=== PATIENT | male | born 1970 | race Hispanic/Latino ===

== ENCOUNTER → 2019-06-10 11:01 | Outpatient (CLI) | payer OTHER, SELFPAY ==
--- NOTE | ~2019-06-10 | XR_ITS ---
EXAMINATION: XR lumbar spine 2-3V DATE: 06/10/2019 11:37 INDICATION: Annual pain and left anterior thigh numbness. TECHNIQUE: Anteroposterior and lateral views of the lumbar spine, and cone-down lateral view of the l umbosacral junction were obtained. COMPARISON: None. FINDINGS: Alignment is normal. Vertebral body heights are normal. Mild disc height loss with degenera tive endplate changes at T10-T11 through L1-L2. Mild degenerative endplate changes without significan t disc height loss at L3-L4. Said osteoarthritis, severe on the left and moderate on the right at L5- S1. Mild osteoarthritis and more cephalad lumbar facet joints. IMPRESSION: 1. Mild thoracolumbar spondylosis. Reviewed, dictated and finalized at location A. SERVER CONSULTANT
--- NOTE | ~2019-06-10 | XR_ITS ---
EXAMINATION: XR knee LT min 4V DATE: 06/10/2019 11:37 INDICATION: Left knee pain. TECHNIQUE: 4 views of left knee were obtained. COMPARISON: Left knee radiographs 12/12/2016 FINDINGS: Bone alignment is normal. No fracture. There is mild tricompartmental osteoarthritis. There is a moderate-sized knee joint effusion. IMPRESSION: 1. Mild left knee osteoarthritis. 2. Moderate-sized left knee joint effusion. Reviewed, dictated and finalized at location A. ROOM PRESS OPERATOR
== END ==
PROVIDERS: PCP Internal Medicine; Visit Provider Internal Medicine
DX: R20.0 Anesthesia of skin (principal); M25.562 Pain in left knee; M47.815 Spondylosis without myelopathy or radiculopathy, thoracolumbar region; M17.12 Unilateral primary osteoarthritis, left knee; M25.462 Effusion, left knee
CPT/HCPCS: 72100; 73564

== ENCOUNTER 2019-06-14 13:15 | Emergency (ER) | payer OTHER, SELFPAY ==
--- NOTE | ~2019-06-14 | CT_ITS ---
EXAMINATION: CTA brain carotid DATE: 06/14/2019 14:21 INDICATION: Left-sided headache. TECHNIQUE: Computed tomographic angiography (CTA) of the head was performed without and with 100 mL O mnipaque-350 intravenous contrast. CTA of the neck was performed with intravenous contrast. Automated exposure control and iterative reconstruction technique were employed. The dose-length product was 1 648.06 mGy-cm. Maximum intensity projection and volume rendered 3D-reconstructions were created by lorie rogers technologist on a separate workstation. COMPARISON: None. FINDINGS: HEAD CTA: There is no intracranial hemorrhage, acute infarction, or abnormal intracranial mass lesion . The ventricles are normal in size. There is mild mucosal thickening in the ethmoid sinuses. The orb its are normal. The mastoid air cells are normal. The vertebral arteries are codominant. There is no significant stenosis of basilar artery or the posterior cerebral arteries. There is no significant st enosis of the intracranial internal carotid arteries or anterior or middle cerebral arteries. Anterio r communicating artery is normal. Left posterior communicating artery is normal. A right posterior co mmunicating artery is not identified. NECK CTA: There are no pathologically enlarged lymph nodes. There is no significant stenosis of the v ertebral arteries. There is no visible plaque in the proximal internal carotid arteries. There is 0% stenosis of the proximal right internal carotid artery relative to normal distal artery lumen diamete r (NASCET criteria). There is 0% stenosis of the proximal left internal carotid artery relative to no rmal distal artery lumen diameter. There is mild cervical spondylosis. IMPRESSION: 1. Normal brain. No aneurysm or significant intracranial arterial stenosis. 2. Normal neck arteries. Reviewed, dictated and finalized at location A. [employer]
[2019-06-14 13:15] VITALS: BP 125/80; PULSE 74; RESP 18; TEMP 36.6; O2SAT 99
--- NOTE | 2019-06-14 13:49 | ED.NEUROSD ---
HPI - Neuro Symptoms/Deficit General Chief Complaint: Neuro Symptoms/Deficit Stated Complaint: neuro Time Seen by Provider: 06/14/19 13:47 Source: patient Mode of arrival: ambulatory Limitations: no limitations History of Present Illness HPI Narrative: Pt is a 48 y/o male who presents to the ED with c/o lt occipital pain and numbness that started about a month ago. Pt had a brain CT done but his pain today was more severe and he almost passed out at work. Pt notes that he gets lt arm and leg numbness when he drives. He states that he has been more clumsy. He notes that his numbness is better in the ED bed. Pt denies a H/o stroke or HTN. He denies CP or fever. Onset (ago): month(s) (1) Location: left face Quality: numb Associated symptoms: other (numbness to lt arm and leg) Related Data Home Medications Medication Instructions Recorded Confirmed tamsulosin mg PO 06/14/19 Allergies Allergy/AdvReac Type Severity Reaction Status Date / Time No Known Allergies Allergy Verified 06/14/19 13:17 Review of Systems Review of Systems: All systems reviewed & are unremarkable except as noted in HPI and below Constitutional: Constitutional: Denies fever(s) Cardiovascular: Cardiovascular: Denies chest pain Neurologic: Reports headache(s) (lt occipital) and Reports numbness (lt occipital region, lt cheek, lt arm, lt leg) PMFSH Past Medical History Medical History (Updated 06/14/19 @ 15:15 by Pierre French MD) BPH (benign prostatic hyperplasia) Surgical History Surgical History (Updated 06/14/19 @ 14:08 by Ramses Lal) No significant past surgical history Social History Social History (Updated 06/14/19 @ 14:08 by Ramses Lal) Smoking status: Never smoker Gender identity (if verbalized by the patient): Male Exam Narrative: Exam Narrative: GENERAL: Well-appearing, well-nourished, and in no acute distress. HEAD: Normocephalic, atraumatic. EYES: PERRLA and EOMI. ENT: Nares clear, . Mucous membranes moist. NECK: Supple. CHEST: Clear to auscultation. No respiratory distress. HEART: Regular rate and rhythm. No murmur heard. Normal peripheral pulses. ABDOMEN: Soft, nontender, nondistended, normal active bowel sounds. EXTREMITIES: Normal range of motion. No edema. SKIN: Warm, dry, no rash. NEURO: No focal deficits. Alert and oriented x3. PSYCH: Normal mood and affect. Course Course Emergency Course: Discussed the lab, CT findings with the patient. I also discussed with Dr. Acosta patient can be discharged home and followed up in his office. Consultations Consultation #1: Discussed case with Dr. Acosta, the neurologist. Pt can be discharged and follow up as outpatient. Date: 06/14/19 Time: 15:00 Vital Signs Vital signs: Vital Signs Temperature 36.6 C 06/14/19 13:15 Pulse Rate 74 06/14/19 13:15 Respiratory Rate 18 06/14/19 13:15 Blood Pressure 125/80 06/14/19 13:15 Pulse Oximetry 99 06/14/19 13:15 Temperature 36.6 C 06/14/19 13:15 Pulse Rate 86 06/14/19 14:57 Respiratory Rate 20 06/14/19 14:57 Blood Pressure 132/81 06/14/19 14:57 Pulse Oximetry 99 06/14/19 14:57 MDM - Neuro Symptoms/Deficit Lab Data Result diagrams: 06/14/19 13:44 06/14/19 13:44 Labs: Lab Results 06/14/19 06/14/19 Range/Units 13:44 13:44 WBC 5.3 (4.5-10.0) K/mm3 RBC 4.53 L (4.6-6.20) M/mm3 Hgb 14.1 (14.0-18.0) g/dL Hct 41.6 L (42.0-52.0) % MCV 91.8 (80-100) fl MCH 31.1 (26-34) pg MCHC 33.9 (32-36) g/dl RDW 12.8 (11.5-14.5) % Plt Count 174 (150-375) k/mm3 MPV 11.5 H (7.4-10.4) fl Immature Gran % (Auto) 0.2 (0-0.5) % Neut % (Auto) 51.5 (45.5-73.1) % Lymph % (Auto) 38.0 (18.3-44.2) % [place] % (Auto) 8.6 H (2.6-8.5) % Eos % (Auto) 1.1 (0-4.4) % Baso % (Auto) 0.6 (0.2-1.2) % Lymph # (Auto) 2.00 (0.9-3.2) K/mm3 [place] # (Auto) 0.5 (0.1-0.6) K/mm3 Eos # (Auto) 0.1 (0-0.3) K/mm
[2019-06-14 13:53] LABS: Basophils Percent Auto 0.6 % (0.2-1.2); Eosinophils Absolute Auto 0.1 K/mm3 (0-0.3); Eosinophils Percent Auto 1.1 % (0-4.4); Hematocrit 41.6 % (42.0-52.0); Hemoglobin 14.1 g/dL (14.0-18.0); Immature Granulocyte Absolute 0.01 K/mm3 (0.00-0.031); Immature Granulocyte Percent A 0.2 % (0-0.5); Mean Corpuscular HGB Conc 33.9 g/dl (32-36); Mean Corpuscular Hemoglobin 31.1 pg (26-34); Mean Corpuscular Volume 91.8 fl (80-100); Mean Platelet Volume 11.5 fl (7.4-10.4); Monocytes Absolute Auto 0.5 K/mm3 (0.1-0.6); Monocytes Percent Auto 8.6 % (2.6-8.5); Neutrophils Absolute Auto 2.7 K/mm3 (1.3-6.7); Neutrophils Percent Auto 51.5 % (45.5-73.1); Platelet Count Result 174 k/mm3 (150-375); Red Blood Count 4.53 M/mm3 (4.6-6.20); Red Cell Distribution Width 12.8 % (11.5-14.5); White Blood Count 5.3 K/mm3 (4.5-10.0)
[2019-06-14 14:05] LABS: Alanine Aminotransferase 49 U/L (4-50); Albumin Level 4.4 g/dL (3.5-5.1); Alkaline Phosphatase 120 U/L (38-126); Aspartate Amino Transferase 40 U/L (17-59); Bilirubin,Total 0.9 mg/dL (0.2-1.3); Blood Urea Nitrogen 11 mg/dL (9-20); Calcium 8.9 mg/dL (8.4-10.2); Carbon Dioxide 27 mmol/L (22-30); Chloride 98 mmol/L (98-107); Estimated Glomerular Filt Rate > 60; Glucose 107 mg/dL (75-110); Potassium 3.4 mmol/L (3.4-5.0); Sodium 137 mmol/L (137-145)
[2019-06-14 14:57] VITALS: BP 132/81; PULSE 86; RESP 20; O2SAT 99
--- NOTE | 2019-06-14 15:02 | PC.NURSE ---
pt ambulated in ED with steady gate w/o difficulty.
[2019-06-14 15:22] VITALS: BP 124/80; PULSE 80; RESP 20; O2SAT 99
== END 2019-06-14 15:23 | disposition home or self-care (01) ==
PROVIDERS: Emergency Medicine; Emergency Provider Family Medicine; PCP Internal Medicine
DX: R51 Headache (principal); N40.0 Benign prostatic hyperplasia without lower urinary tract symptoms
CPT/HCPCS: 36415; 70496; 70498; 80053; 85025; 99284; Q9967

== ENCOUNTER 2019-09-18 07:51 | Outpatient (CLI) | payer OTHER, SELFPAY ==
--- NOTE | 2019-09-20 12:22 | WPDHOLTEREM ---
Holter/Event Monitor Holter/Event Monitor Date of procedure: 09/18/19 Procedure Type: 48 hour holter monitor Indications: Palpitations Conclusion: 1. 48 hour holter monitor on 09/18/19. 2. Underlying rhythm is sinus rhythm. HR range 42-132 bpm; average HR 75 bpm. 3. There are 4 premature suprventricular complexes. No supraventricular tachycardia. 4. There are 3 premature ventricular complexes. No ventricular tachycardia. 5. No sinoatrial or atrioventricular blocks. No significant pauses greater than 2 seconds. 6. No symptoms available for correlation.
== END 2019-09-18 07:52 | disposition home or self-care (01) ==
LOC: ANHCARD 07:53
PROVIDERS: PCP Internal Medicine; Visit Provider Internal Medicine
DX: R00.2 Palpitations (principal)
CPT/HCPCS: 93225; 93226

== ENCOUNTER 2019-11-16 00:31 | Outpatient (CLI) | payer OTHER, SELFPAY ==
[2019-11-16 18:30] LABS: SARS-CoV-2 RNA PCR Negative
== END 2019-11-16 00:32 | disposition home or self-care (01) ==
LOC: ANHCOVIDDT 00:31
PROVIDERS: PCP Internal Medicine; Visit Provider Internal Medicine Gastroenterology
DX: Z01.818 Encounter for other preprocedural examination (principal); Z11.59 Encounter for screening for other viral diseases
CPT/HCPCS: 87635; C9803; U0003

== ENCOUNTER 2019-11-19 01:55 | Day surgery (SDC) | payer OTHER, SELFPAY ==
[2019-11-08 11:06] VITALS: BMI 30.9
--- NOTE | 2019-11-19 07:20 | WPDANESEPPF ---
Anes - Initial Pre Proc Eval Procedure: Operation Date: 11/19/19 10:00 Proposed Procedures p Screening Colonoscopy - Marcelo Stover MD Date/Time: 11/19/19 07:20 Surgeon: Marcelo Stover MD Pre Op Diagnosis: Neoplasm Screening Patient Data Age: 49 Gender: M Height: 1.75 m Weight: 95 kg Allergies Allergy/AdvReac Type Severity Reaction Status Date / Time No Known Allergies Allergy Verified 11/19/19 08:55 Home Medications Medication Instructions Recorded Confirmed Type No Home Medications 11/19/19 08 History Patient hx anesthesia problems: none Family hx anesthesia problems: none PMF Past Medical History Medical History (Updated 11/19/19 @ 07:20 by Jorge Sloan DO) Anxiety BPH (benign prostatic hyperplasia) Colon cancer screening Surgical History Surgical History (Updated 06/14/19 @ 14:08 by Ramses Lal) No significant past surgical history Social History Social History (Updated 06/14/19 @ 14:08 by Ramses Lal) Smoking status: Never smoker Gender identity (if verbalized by the patient): Male Anes - Eval Final PreProcedure Day of Procedure 11/19/19 07:20 Patient weight: obese Heart: regular rate and rhythm Lungs: clear to auscultation and normal air movement Airway: Mallampati scale class II Neurological: alert and oriented Last oral intake: >/= 8 hours ASA classification: II Emergent: no Anesthetic plan: proceed Anesthesia type and monitoring: general GIVS and standard monitoring Informed Consent: The patient's anesthetic plan and its attendant risks and benefits were discussed with the patient/family/POA. Questions were solicited and answers provided to the satisfaction of the patient/family/POA.
[2019-11-19 09:01] VITALS: BP 105/72; PULSE 86; RESP 16; TEMP 36.1; O2SAT 100
[2019-11-19] MEDS: LACTATED RINGERS 1,000 ML 150 ML IV CONT (09:09)
--- NOTE | 2019-11-19 10:05 | WPDHPUPDATE1 ---
History and Physical Update Update Date/Time: 11/19/19 10:05 History and Physical has been reviewed, including an updated exam of the patient. There are NO changes in the patient's condition. Risks, benefits, and alternatives have been discussed and questions answered. Patient agrees to proceed with procedure.
[2019-11-19 10:32] VITALS: BP 99/64; PULSE 68; RESP 23; O2SAT 99
[2019-11-19 10:42] VITALS: BP 100/66; PULSE 59; RESP 15; O2SAT 98
[2019-11-19 10:52] VITALS: BP 106/72; PULSE 50; RESP 14; O2SAT 99
[2019-11-19 11:02] VITALS: BP 111/78; PULSE 57; RESP 18; O2SAT 98
== END 2019-11-19 11:10 | disposition home or self-care (01) ==
PROVIDERS: PCP Internal Medicine; Visit Provider Internal Medicine Gastroenterology
PROC: 0DJD8ZZ Inspection of Lower Intestinal Tract, Via Natural or Artificial Opening Endoscopic (ICD-10-PCS; CPT 45378; principal; 2019-11-19 10:00)
DX: Z12.11 Encounter for screening for malignant neoplasm of colon (principal); K64.8 Other hemorrhoids
CPT/HCPCS: 45378; J2001; J2704; J7120

== ENCOUNTER 2020-11-13 09:40 | Emergency (ER) | payer OTHER, SELFPAY ==
[2020-11-13 09:46] VITALS: BP 115/83; PULSE 68; RESP 16; TEMP 36.9; O2SAT 97
[2020-11-13 09:50] LABS: Glucose Point of Care 285 mg/dl (65-105)
--- NOTE | 2020-11-13 10:24 | ECG_ITS ---
Measurements Intervals [place] Rate: 62 P: -4 OR: 153 QRS: 28 QRSD: 98 T: 45 QT: 408 QTc: 417 Interpretive Statements SINUS RHYTHM ST ELEVATION IN DIFFUSE LEADS- PROBABLY EARLY REPOLARIZATION ABNORMALITY BORDERLINE ECG Electronically Signed On 11-13-2020 15:31:53 CDT by Jovany Velazquez D.O.
[2020-11-13 10:45] LABS: Basophils Percent Auto 0.5 % (0.2-1.2); Eosinophils Absolute Auto 0.1 K/mm3 (0-0.3); Eosinophils Percent Auto 1.2 % (0-4.4); Hematocrit 40.4 % (42.0-52.0); Immature Granulocyte Absolute 0.02 K/mm3 (0.00-0.031); Immature Granulocyte Percent A 0.5 % (0-0.5); Immature Platelet Fraction Pct 13.8 % (0.9-11.2); Lymphocytes Absolute Auto 1.54 K/mm3 (0.9-3.2); Lymphocytes Percent Auto 36.7 % (18.3-44.2); Mean Corpuscular HGB Conc 34.7 g/dl (32-36); Mean Corpuscular Hemoglobin 31.6 pg (26-34); Mean Corpuscular Volume 91.2 fl (80-100); Monocytes Absolute Auto 0.4 K/mm3 (0.1-0.6); Monocytes Percent Auto 9.5 % (2.6-8.5); Neutrophils Absolute Auto 2.2 K/mm3 (1.3-6.7); Neutrophils Percent Auto 51.6 % (45.5-73.1); Platelet Count Result 153 k/mm3 (150-375); Red Blood Count 4.43 M/mm3 (4.6-6.20); Red Cell Distribution Width 12.1 % (11.5-14.5); White Blood Count 4.2 K/mm3 (4.5-10.0)
--- NOTE | 2020-11-13 10:53 | ED.RECABL ---
HPI - Recheck/Abnormal Lab/Rx General Chief Complaint: Recheck/Abnormal Lab/Rx Stated Complaint: recheck labs sent by PCP Time Seen by Provider: 11/13/20 09:44 Source: patient and RN notes reviewed Mode of arrival: ambulatory Limitations: no limitations History of Present Illness HPI narrative: This is a 50 year old male who presents from his PCP's office for evaluation for hyperglycemia with fatigue. Patient reports he has had increased thirst, increased urination and fatigue for 2-3 weeks. She also reports 18 pound weight loss even though he has been eating normally. He reports mild nausea but denies vomiting, chest pain , sob, or abdominal pain. He was evaluated by his PCP this morning. She found his blood sugar was 280 and he had ketones in his urine. Patient denies previous history of diabetes mellulits. Related Data Home Medications Medication Instructions Recorded Confirmed duloxetine mg PO 11/13/20 11/13/20 Allergies Allergy/AdvReac Type Severity Reaction Status Date / Time No Known Allergies Allergy Verified 11/13/20 09:50 Review of Systems Review of Systems: All systems reviewed & are unremarkable except as noted in HPI and below Constitutional: Constitutional: Denies chills and Denies fever(s) ENT: Denies sore throat Cardiovascular: Cardiovascular: Denies chest pain and Denies radiating jaw, neck or arm pain Respiratory: Respiratory: Denies cough and Denies dyspnea Gastrointestinal: Gastrointestinal: Denies abdominal pain, Reports nausea and Denies vomiting Genitourinary: Genitourinary: Denies dysuria and Reports urinary frequency Neurologic: Denies dizziness and Denies headache(s) Endocrine: Endocrine: Reports polydipsia and Reports polyuria [facility] Past Medical History Medical History (Updated 11/13/20 @ 13:40 by Lindsay Dunaway MD) Anxiety BPH (benign prostatic hyperplasia) Colon cancer screening Surgical History Surgical History (Updated 06/14/19 @ 14:08 by Ramses Lal) No significant past surgical history Social History Social History (Updated 06/14/19 @ 14:08 by Ramses Lal) Smoking status: Never smoker Gender identity (if verbalized by the patient): Male Exam Const: General: no acute distress and alert Orientation/consciousness: patient oriented x3 HENMT: Mouth: Yes dry mucous membranes Eyes: Pupils: Equal, round and reactive pupils present EOM: EOMs intact bilaterally Resp: Effort & Inspection: normal respiratory effort and no retractions Auscultation: clear to auscultation bilaterally Cardio: Rate: regular rate Rhythm: regular rhythm Heart sounds: no murmurs GI: GI Palp: Yes Soft to palpation, No Tenderness to palpation present (GI) and No Guarding due to palpation present (GI) Auscultation: normal bowel sounds Skin: General skin exam: normal color Rashes: no rashes Neuro: General: patient oriented x3, moves all extremities and CN's II-XI intact bilaterally Extrem: General: normal to inspection Psych: Mental Status: mental status grossly normal Affect: normal affect Course Reevaluation(s) Reevaluation #1: I Discussed with patient that he will be discharged home. He understands he will need to change diet and exercise. He will also be started on metformin as I discussed with his primary care physician Dr. Amanda Culp. He has no elevated AGAG , decreased bicarb to suggest DKA. He only has mild ketosis so not DKA. BS 218 Date: 11/13/20 Time: 13:37 Vital Signs Vital signs: Vital Signs Temperature 98.4 F 11/13/20 09:46 Pulse Rate 68 11/13/20 09:46 Respiratory Rate 16 11/13/20 09:46 Blood Pressure 115/83 11/13/20 09:46 Pulse Oximetry 97 11/13/20 09:46 Temperature 97.8 F 11/13/20 13:45 Pulse Rate 62 11/13/20 14:00 Respiratory Rate 12 11/13/20 14:00 Blood Pressure 105/77 11/13/20 14:00 Pulse Oximetry 98 11/13/20 14:00 MDM - Recheck/Abnormal Lab/Rx Lab Data Attestation: I revie
[2020-11-13 10:58] LABS: Alanine Aminotransferase 53 U/L (4-50); Albumin Level 3.9 g/dL (3.5-5.1); Alkaline Phosphatase 133 U/L (38-126); Anion Gap 9 mmol/L (8-16); Aspartate Amino Transferase 37 U/L (17-59); Bilirubin,Total 1.1 mg/dL (0.2-1.3); Blood Urea Nitrogen 14 mg/dL (9-20); Calcium 8.9 mg/dL (8.4-10.2); Carbon Dioxide 27 mmol/L (22-30); Chloride 98 mmol/L (98-107); Estimated CRCL calculation 111 ml/min; Estimated Glomerular Filt Rate > 60; Glucose 273 mg/dL (65-110); Magnesium 1.7 mg/dL (1.6-2.3); Potassium 4.1 mmol/L (3.4-5.0); Sodium 134 mmol/L (137-145)
[2020-11-13 11:04] LABS: Beta-Hydroxybutyrate/Acetoacetate 0.86 mmol/L (0.02-0.27)
[2020-11-13] MEDS: ONDANSETRON INJ 4 MG/2 ML VIAL IV PUSH (11:11)
[2020-11-13] MEDS: SODIUM CHLORIDE 0.9% IV 1,000 ML 999 ML IV CONT ×2 (11:11→12:02)
[2020-11-13 11:48] VITALS: BP 111/72; PULSE 64; RESP 16; TEMP 36.7; O2SAT 96
[2020-11-13 12:10] LABS: Add Urine Microscopic? YES; Appearance Urine Clear (Clear); Bilirubin Urine Negative (Negative); Blood Urine Negative (Negative); Color Urine Yellow (Yellow); Glucose Urine UA 3+ mg/dL (Negative); Ketones Urine 1+ mg/dL (Negative); Leukocyte Esterase Ur Negative LEU/UL (Negative); Mucus Urine Rare /lpf; Nitrate Urine Negative (Negative); Protein Urine Negative (Negative); RBC Urine 0-2 /hpf (0-2); Squamous Epithelial Cell Urine Rare /hpf (Few); Urobilinogen Urine Negative mg/dL (<2.0); WBC Urine 0-3 /hpf
[2020-11-13 12:17] LABS: Specific Grav Ur 1.041 (1.001-1.035)
[2020-11-13 12:31] VITALS: BP 112/80; PULSE 65; RESP 18; O2SAT 97
[2020-11-13 13:00] VITALS: BP 110/76; PULSE 68; RESP 16; TEMP 36.6; O2SAT 98
[2020-11-13 13:33] LABS: Glucose Point of Care 216 mg/dl (65-105)
[2020-11-13 13:45] VITALS: BP 125/68; PULSE 65; RESP 19; TEMP 36.6; O2SAT 96
[2020-11-13 14:00] VITALS: BP 105/77; PULSE 62; RESP 12; O2SAT 98
== END 2020-11-13 14:21 | disposition home or self-care (01) ==
PROVIDERS: Emergency Provider General Practice; PCP Internal Medicine
DX: E11.65 Type 2 diabetes mellitus with hyperglycemia (principal); N40.0 Benign prostatic hyperplasia without lower urinary tract symptoms; F41.9 Anxiety disorder, unspecified; R94.31 Abnormal electrocardiogram [ECG] [EKG]
CPT/HCPCS: 36415; 80053; 81001; 82010; 82948; 83735; 85025; 85055; 93005; 96361; 96374; 99284; J2405; J7030

== ENCOUNTER 2023-07-10 18:35 | Emergency (ER) | payer OTHER, SELFPAY ==
[2023-07-10 18:48] VITALS: BP 117/72; PULSE 69; RESP 18; TEMP 36.7; O2SAT 99
[2023-07-10] MEDS: LIDOCAINE HCL 1% LOCAL INJ 2 ML AMPUL 4 ML INFILTRATE (18:51)
--- NOTE | 2023-07-10 19:35 | ED.WOUNDLAC ---
HPI - Wound/Laceration General Chief Complaint: Wound/Laceration Stated Complaint: Cut Lt Hand Time Seen by Provider: 07/10/23 18:45 Source: patient Mode of arrival: ambulatory Limitations: no limitations History of Present Illness HPI narrative: 52 yo M presents with laceration to L index finger. Pt using knife at home while making dinner. Was in a hurry and cut himself. Apply bandaids at home and coud not get wound to stop bleeding. All systems reviewed and negative except as noted above. Related Data Home Medications Medication Instructions Recorded Confirmed sitagliptin phosphate 100 mg mg 07/10/23 tablet (Januvia) tadalafil 20 mg tablet mg 07/10/23 Allergies Allergy/AdvReac Type Severity Reaction Status Date / Time doxycycline AdvReac Mild Dizziness Verified 07/10/23 19:22 Review of Systems Review of Systems: CONSTITUTIONAL: Denies fever, chills, or sweats. EYES: Denies visual changes, redness, or discharge. ENT: Denies rhinorrhea, congestion, sore throat, or otalgia. CARDIOVASCULAR: Denies chest pain, palpitations, or edema. RESPIRATORY: Denies cough or dyspnea. GASTROINTESTINAL: Denies abdominal pain, nausea, vomiting, or diarrhea. GENITOURINARY: Denies dysuria or hematuria. SKIN: Denies rash or itching. Laceration to left index finger. MUSCULOSKELETAL: Denies back pain, joint pain, or myalgia. NEUROLOGIC: Denies headache, numbness, or weakness. PSYCHIATRIC: Denies anxiety or depression. All other systems reviewed are negative, except as documented in HPI. [facility] Past Medical History Medical History Anxiety BPH (benign prostatic hyperplasia) Colon cancer screening Diabetes Surgical History Surgical History No significant past surgical history Family History Family History Grandparent Stomach cancer Social History Social History Smoking status: Never smoker Alcohol intake: current Substance use type: does not use Living arrangements: with family Occupation/Education: occupation Additional occupation/education comments: [employer] Gender identity (if verbalized by the patient): Male Comments At time of signature, agree with nursing past medical, surgical, social and family history. There is no relevant family history pertinent to the presenting complaint. Exam Narrative: GENERAL: This is a well-nourished, well-developed patient, in no apparent distress. HEAD: normocephalic, atraumatic. EYES: PERRL. Sclera clear/white. Vision is grossly intact. EARS: External ears normal NOSE: External nose normal NECK: Neck supple, non-tender without lymphadenopathy, masses or thyromegaly. CARDIOVASCULAR: Regular rate and rhythm without murmurs, gallops, or rubs. RESPIRATORY: Clear to auscultation. Breath sounds equal bilaterally. No wheezes, rales, or rhonchi. SKIN: warm, Dry, intact with no suspicious lesions or rash, good texture and turgor. U shaped skin flap laceration to pad of distal aspect of L index finger. Small amount of active bleeding. skin flap approx. 4cm. there is approx. 1 cm where skin is intact. flap is normal color, not dusky. NEURO: awake, alert, and oriented to person, place and time. There were no obvious focal neurologic abnormalities. EXTREMITIES: No joint tenderness, effusion, or edema noted. Course Course Emergency Course: explained to pt that the flap of skin has reduced blood flow and he needs to monitor for change in color. this can hinder healing of wound. recommend he follow up with PCP to evaluate healing. if skin color dusky, pale, black/brown go to the ER. Patient is aware of diagnosis, understands and agrees to treatment plan. Anticipatory guidance given. Patient agrees to follow-up as directed and is aware of reasons
== END 2023-07-10 19:41 | disposition home or self-care (01) ==
PROVIDERS: Emergency Provider Nurse Practitioner Family; PCP Internal Medicine
DX: S61.211A Laceration without foreign body of left index finger without damage to nail, initial encounter (principal); W26.0XXA Contact with knife, initial encounter; Y93.G3 Activity, cooking and baking; N40.0 Benign prostatic hyperplasia without lower urinary tract symptoms; E11.9 Type 2 diabetes mellitus without complications
CPT/HCPCS: 12002; 99213; G0463

== ENCOUNTER 2024-07-22 13:12 | Emergency (ER) | payer OTHER, SELFPAY ==
[2024-07-22 13:18] VITALS: BP 128/83; PULSE 75; RESP 16; TEMP 36.7; O2SAT 99
[2024-07-22 13:25] LABS: Glucose Point of Care 233 mg/dl (65-105)
--- NOTE | 2024-07-22 14:53 | ED_ITS ---
HPI - Recheck/Abnormal Lab/Rx General Chief Complaint: Recheck/Abnormal Lab/Rx <Graciela Keenan PA-C - Last Filed: 07/22/24 19:02> Stated Complaint: Uncontrolled blood sugar <Graciela Keenan PA-C - Last Filed: 07/22/24 19:02> Time Seen by Provider: 07/22/24 14:53 <Graciela Keenan PA-C - Last Filed: 07/22/24 19:02> Focused HPI: This is a 53 year old male that presents to the ER for high blood sugar. Reports it has been in the 200s-300s. Reports he stopped taking his Januvia a couple of months ago due to his PCP's office closing. Reports increased thirst, urination. He does have an appointment with a new PCP on . GENERAL: Well-appearing, well-nourished, and in no acute distress. HEAD: Normocephalic, atraumatic. CHEST: Clear to auscultation. ?No respiratory distress. HEART: Regular rate and rhythm.? NEURO: ?Alert and oriented x3. Patient screened in triage and initial orders placed.? ?Additional care and disposition to be based upon?diagnostic testing and treatment. <Graciela Keenan PA-C - Last Filed: 07/22/24 19:02> History of Present Illness HPI narrative: agree with HPI <Carlos Ramirez MD - Last Filed: 07/22/24 16:04> Related Data Home Medications: Home Medications ?Medication ?Instructions ?Recorded ?Confirmed ?Last Taken ?Type sitagliptin phosphate 100 mg mg 07/10/23 Unknown History tablet (Januvia) tadalafil 20 mg tablet mg 07/10/23 Unknown History <Graciela Keenan PA-C - Last Filed: 07/22/24 19:02> Allergies/Adverse Reactions: Allergies Allergy/AdvReac Type Severity Reaction Status Date / Time doxycycline AdvReac Mild Dizziness Verified 07/22/24 13:13 <Graciela Keenan PA-C - Last Filed: 07/22/24 19:02> Review of Systems 2 Review of Systems: All systems reviewed & are unremarkable except as noted in HPI and below <Carlos Ramirez MD - Last Filed: 07/22/24 16:04> Constitutional: Constitutional: Reports no additional constitutional complaints <Carlos Ramirez MD - Last Filed: 07/22/24 16:04> Cardiovascular: Cardiovascular: Reports no additional cardiovascular complaints <Carlos Ramirez MD - Last Filed: 07/22/24 16:04> Respiratory: Respiratory: Reports no additional respiratory complaints < Carlos Ramirez MD - Last Filed: 07/22/24 16:04> Gastrointestinal: Gastrointestinal: Reports no additional gastrointestinal complaints <Carlos Ramirez MD - Last Filed: 07/22/24 16:04> Endocrine: Endocrine: Reports no additional endocrine complaints <Carlos Ramirez MD - Last Filed: 07/22/24 16:04> PMFSH Past Medical History Medical History: Medical History Anxiety BPH (benign prostatic hyperplasia) Colon cancer screening Diabetes <Graciela Keenan PA-C - Last Filed: 07/22/24 19:02> Surgical History Surgical History: Surgical History No significant past surgical history <Graciela Keenan PA-C - Last Filed: 07/22/24 19:02> Family History Family History: Family History Grandparent Stomach cancer <Graciela Keenan PA-C - Last Filed: 07/22/24 19:02> Social History Social History: Social History Smoking status: Never smoker Alcohol intake: current Substance use type: does not use Living arrangements: with family Occupation/Education: occupation Additional occupation/education comments: [employer] Gender identity (if verbalized by the patient): Male <Graciela Keenan PA-C - Last Filed: 07/22/24 19:02> Exam 2 Narrative: GENERAL: Well-appearing, well-nourished, and in no acute distress. HEAD: Normocephalic, atraumatic. ENT: Mucous membranes moist. CHEST: Clear to auscultation. No respiratory distress. HEART: Regular rate and rhythm. Normal peripheral pulses. EXTREMITIES: Normal range of motion. No edema. SKIN: Warm, dry, no rash. NEURO: Alert and oriented x3. PSYCH: Normal mood and affect. <Carlos Ramirez MD - Last Filed: 07/22/24 16:04> Course Course Emergency Course: Mild hyperglycemia. Will restart his Januvia and has follow-up with a PCP this week. <Carlos Ramirez MD - Last Filed: 07/22/24 16:04> Vital Signs Vital signs: Vital Signs Temperature 98.0 F 07/22/24 13:18 Pulse Rate 75 07/22/24 13:18 Respiratory Rate 16 07/22/24 13:18 Blood Pressure 128/83 07/22/24 13:18 Pulse Oximetry 99 07/22/24 13:18 Oxygen Delivery Room Air 07/22/24 13:18 Temperature 97.6 F 07/22/24 16:42 Pulse Rate 64 07/22/24 16:42 Respiratory Rate 20 07/22/24 16:42 Blood Pressure 119/81 07/22/24 16:42 Pulse Oximetry 100 07/22/24 16:42 Oxygen Delivery Room Air 07/22/24 15:42 <Graciela Keenan PA-C - Last Filed: 07/22/24 19:02> Vital Signs Temperature 98.0 F 07/22/24 13:18 Pulse Rate 75 07/22/24 13:18 Respiratory Rate 16 07/22/24 13:18 Blood Pressure 128/83 07/22/24 13:18 Pulse Oximetry 99 07/22/24 13:18 Oxygen Delivery Room Air 07/22/24 13:18 Temperature 97.6 F 07/22/24 16:42 Pulse Rate 64 07/22/24 16:42 Respiratory Rate 20 07/22/24 16:42 Blood Pressure 119/81 07/22/24 16:42 Pulse Oximetry 100 07/22/24 16:42 Oxygen Delivery Room Air 07/22/24 15:42 <Carlos Ramirez MD - Last Filed: 07/22/24 16:04> MDM - Recheck/Abnormal Lab/Rx Lab Data Result diagrams: 07/22/24 15:40 07/22/24 15:40 <Graciela Keenan PA-C - Last Filed: 07/22/24 19:02> Labs: Lab Results 07/22/24 07/22/24 Range/Units 13:21 15:40 WBC 6.0 (4.5-10.0) K/mm3 RBC 4.72 (4.6-6.20) M/mm3 Hgb 14.9 (14.0-18.0) g/dL Hct 44.0 (42.0-52.0) % MCV 93.2 (80-100) fl MCH 31.6 (26-34) pg MCHC 33.9 (32-36) g/dl RDW 12.1 (11.5-14.5) % Plt Count 172 (150-375) k/mm3 MPV 11.6 H (7.4-10.4) fl Immature Gran % (Auto) 0.3 (0-0.5) % Neut % (Auto) 50.3 (45.5-73.1) % Lymph % (Auto) 37.9 (18.3-44.2) % Starke % (Auto) 9.5 H (2.6-8.5) % Eos % (Auto) 1.5 (0-4.4) % Baso % (Auto) 0.5 (0.2-1.2) % Lymph # (Auto) 2.27 (0.9-3.2) K/mm3 Starke # (Auto) 0.6 (0.1-0.6) K/mm3 Eos # (Auto) 0.1 (0-0.3) K/mm3 Baso # (Auto) 0.0 (0.0-0.1) K/mm3 Abs Immat Gran (auto) 0.02 (0.00-0.031) K/mm3 Absolute Neuts (auto) 3.0 (1.3-6.7) K/mm3 Absolute Nucleated RBC 0.000 (0.0-0.012) K/mm3 Nucleated RBC % 0.0 (0.0-0.2) % Sodium 134 L (137-145) mmol/L Potassium 4.0 (3.4-5.0) mmol/L Chloride 99 (98-107) mmol/L Carbon Dioxide 28 (22-30) mmol/L Anion Gap 7 (4-12) mmol/L BUN 21 H (9-20) mg/dL Creatinine 0.73 (0.7-1.3) mg/dL Estim Creat Clear Calc 103 ml/min Estimated GFR > 60 (59 - ) Glucose 215 H (65-110) mg/dL POC Capillary Glucose 233 H (65-105) mg/dl Calcium 9.0 (8.4-10.2) mg/dL Total Bilirubin 0.7 (0.2-1.3) mg/dL AST 26 (17-59) U/L ALT 31 (6-50) U/L Alkaline Phosphatase 114 (38-126) U/L Total Protein 8.0 (6.3-8.2) g/dL Albumin 4.2 (3.5-5.1) g/dL Urine Color Yellow (Yellow) Urine Appearance Clear (Clear) Urine pH 5.5 (5.0-9.0) Ur Specific [place] 1.025 (1.001-1.035) Urine Protein Negative (Negative) mg/dL Urine Glucose (UA) 3+ H (Negative) mg/dL Urine Ketones 1+ H (Negative) mg/dL Ur Blood (Man) Negative (Negative) Urine Nitrate Negative (Negative) Urine Bilirubin Negative (Negative) Urine Urobilinogen 1.0 (<2.0) mg/dL Leukocyte Esterase Rfl Negative (Negative) IMELDA/UL <Graciela Keenan PA-C - Last Filed: 07/22/24 19:02> Lab Results 07/22/24 07/22/24 Range/Units 13:21 15:40 WBC 6.0 (4.5-10.0) K/mm3 RBC 4.72 (4.6-6.20) M/mm3 Hgb 14.9 (14.0-18.0) g/dL Hct 44.0 (42.0-52.0) % MCV 93.2 (80-100) fl MCH 31.6 (26-34) pg MCHC 33.9 (32-36) g/dl RDW 12.1 (11.5-14.5) % Plt Count 172 (150-375) k/mm3 MPV 11.6 H (7.4-10.4) fl Immature Gran % (Auto) 0.3 (0-0.5) % Neut % (Auto) 50.3 (45.5-73.1) % Lymph % (Auto) 37.9 (18.3-44.2) % Starke % (Auto) 9.5 H (2.6-8.5) % Eos % (Auto) 1.5 (0-4.4) % Baso % (Auto) 0.5 (0.2-1.2) % Lymph # (Auto) 2.27 (0.9-3.2) K/mm3 [place] # (Auto) 0.6 (0.1-0.6) K/mm3 Eos # (Auto) 0.1 (0-0.3) K/mm3 Baso # (Auto) 0.0 (0.0-0.1) K/mm3 Abs Immat Gran (auto) 0.02 (0.00-0.031) K/mm3 Absolute Neuts (auto) 3.0 (1.3-6.7) K/mm3 Absolute Nucleated RBC 0.000 (0.0-0.012) K/mm3 Nucleated RBC % 0.0 (0.0-0.2) % Sodium 134 L (137-145) mmol/L Potassium 4.0 (3.4-5.0) mmol/L Chloride 99 (98-107) mmol/L Carbon Dioxide 28 (22-30) mmol/L Anion Gap 7 (4-12) mmol/L BUN 21 H (9-20) mg/dL Creatinine 0.73 (0.7-1.3) mg/dL Estim Creat Clear Calc 103 ml/min Estimated GFR > 60 (59 - ) Glucose 215 H (65-110) mg/dL POC Capillary Glucose 233 H (65-105) mg/dl Calcium 9.0 (8.4-10.2) mg/dL Total Bilirubin 0.7 (0.2-1.3) mg/dL AST 26 (17-59) U/L ALT 31 (6-50) U/L Alkaline Phosphatase 114 (38-126) U/L Total Protein 8.0 (6.3-8.2) g/dL Albumin 4.2 (3.5-5.1) g/dL Urine Color Yellow (Yellow) Urine Appearance Clear (Clear) Urine pH 5.5 (5.0-9.0) Ur Specific [place] 1.025 (1.001-1.035) Urine Protein Negative (Negative) mg/dL Urine Glucose (UA) 3+ H (Negative) mg/dL Urine Ketones 1+ H (Negative) mg/dL Ur Blood (Man) Negative (Negative) Urine Nitrate Negative (Negative) Urine Bilirubin Negative (Negative) Urine Urobilinogen 1.0 (<2.0) mg/dL Leukocyte Esterase Rfl Negative (Negative) IMELDA/UL <Carlos Ramirez MD - Last Filed: 07/22/24 16:04> Critical Care Time Critical Care Time Critical Care Time: No <Graciela Keenan PA-C - Last Filed: 07/22/24 19:02> Discharge Plan Discharge Clinical Impression: Chronic hyperglycemia <Graciela Keenan PA-C - Last Filed: 07/22/24 19:02> Patient Disposition: Home <Graciela Keenan PA-C - Last Filed: 07/22/24 19:02> Condition: Stable <Graciela Keenan PA-C - Last Filed: 07/22/24 19:02> Instructions: Diabetic Hyperglycemia (ED) <Graciela Keenan PA-C - Last Filed: 07/22/24 19:02> Additional Instructions: Return ER if you cannot keep down food/water/medication, you have chest pain shortness of breath, you cannot keep down food or water, or you have additional concerns. <Graciela Keenan PA-C - Last Filed: 07/22/24 19:02> Patient Language: Albanian <Graciela Keenan PA-C - Last Filed: 07/22/24 19:02> Prescriptions: New Januvia 100 mg tablet 100 mg PO DAILY Qty: 7 0RF No Action tadalafil 20 mg tablet Januvia 100 mg tablet cephalexin 500 mg capsule 500 mg PO BID 7 Days Qty: 14 0RF celecoxib [Celebrex] 200 mg capsule 200 mg PO DAILY Qty: 30 2RF <Graciela Keenan PA-C - Last Filed: 07/22/24 19:02> Follow-up/Referrals: Amanda Culp MD [Primary Care Provider] - 1 Week <NATALIE Oleary Last Filed: 07/22/24 19:02>
--- OUTSIDE RECORDS SUMMARY | 2024-07-22 15:03 | XMS_ITS | Referral Summary ---
Author Organization [facility] Address [address] [place] [address] Phone Care Team Providers Care Freight Checker Name Role Phone Amanda Culp MD Primary Care Provider [phone] Jair Gandara MD Unavailable [phone] Allergies No known active allergies Medications tamsulosin (FLOMAX) 0.4 mg extended release capsule 0.4 mg daily Active syringe with needle (BD Luer-Sammy Syringe) 3 mL 21 gauge x 1 syringe 1 each every 14 (fourteen) days 6 Syringe 1 0 Active tadalafiL (CIALIS) 20 mg tabletIndication s:Erectile dysfunction due to diseases classified elsewhere TAKE ONE TABLET BY MOUTH ONCE DAILY NEEDED FOR ERECTILE DYSFUNCTION 8 tablet 0 Active Active Problems Problem Noted Date Diagnosed Date Hyperprolactinemia 04/14/2019 Assessment & Plan (04/28/2019 11:00 PM PERSONAL INJURY PARALEGAL): Reviewed pt recent lab results Noted slightly high prolactin levels and low testosterone levels Recheck prolactin levels and further based on the test results Male hypogonadism 04/14/2019 Assessment & Plan (07/06/2019 12:37 PM CDT): Male hypogonadism Recheck morning a.m. cortisol levels Check prolactin levels Also check FSH and LH levels If it LH and FSH are low need any imaging study to rule out any pituitary adenoma/tumor Patient recently had a CT head outside done will try to obtain a report and images Also discussed about treatment options if patient repeat levels come back low Patient would like to try testosterone injections versus gel Also discussed about pros and cons of testosterone therapy Further plans based on repeat labs Assessment & Plan (04/28/2019 11:01 PM PERSONAL INJURY PARALEGAL): Possible due to high prolactin levels If prolactin levels normal on repeat labs, plan to recheck 8 am total testosterone levels Knee pain 01/04/2017 Immunizations Immunization Administration Dates Next Due Influenza, Unspecified 06/20/2018(Deferred: Piedad ent Refused) Social History Tobacco Use Types Packs/Day Years Used Date Smoking Tobacco: Never Smokeless Tobacco: Never Alcohol Use Standard Drinks/Week Comments Yes 0 (1 standard drink = 0.6 oz pur e alcohol) Rarely PHQ-2 Answer Date Recorded PHQ-2 Total Score (If total score is 3 or more points, staff should administer the PHQ-9) 0 06/27/2019 Personal Safety Answer Date Recorded Getting School Help Needed Not on file 04/04 Sex and Gender Information Value Date Recorded Sex Assigned at Not on file Legal Sex Male 1:23 AM PERSONAL INJURY PARALEGAL Gender Identity Not on file Sexual Orientation Not on file Last Filed Vital Signs Vital Sign Reading Time Taken Comments Blood Pressure 130/74 06/27/2019 3:19 PM CDT Pulse 66 06/27/2019 3:19 PM CDT Temperature 37.1 C (98.7 F) 06/20/2018 3:00 PM PERSONAL INJURY PARALEGAL Respiratory Rate 12 06/27/2019 3:19 PM CDT Oxygen Saturation 98% 06/20/2018 3:00 PM PERSONAL INJURY PARALEGAL Inhaled Oxygen Concentration - - Weight 94.8 kg (209 lb) 06/27/2019 3:19 PM CDT Height 177.8 cm (5' 10 ) 06/27/2019 3:19 PM CDT Body Mass Index 29.99 06/27/2019 3:19 PM CDT Plan of Treatment Not on file Insurance [facility]PP[facility] Address: [address] [place] [address] [facility]/PPO Address: [address] [place] [address] Advance Directives For more information, please contact: [phone] * Full Code (Latest Code Status on File) Date Activated Date Inactivated Comments 06/06/2017 11:21 AM 06/06/2017 3:40 PM * Full Code Date Activated Date Inactivated Comments 06/06/2017 11:21 AM 06/06/2017 11:21 AM Care Teams Freight Checker Relationship Specialty Start Date End Date Amanda Culp MD [employer] [place] [address] PCP - General Internal Medicine 03/28/19 [place] [id number] [address] [facility] [address] [place] [address] Consulting Physician Endocrinology 03/28/19
--- OUTSIDE RECORDS SUMMARY | 2024-07-22 15:03 | XMS_ITS | Clinical Summary ---
Author Organization [facility] Address [address] [place] [address] Care Team Providers Care Fire Extinguisher Sprinkler Inspector Name Role Phone Amanda Culp MD Unavailable [phone] Amanda Culp MD Primary Care Provider [phone] Source Comments [facility],non-owned Affiliates and Associated Physician Practices is amultiple site organization consisting of ambulatory clinics and hospital sitesin [place], [place], [place] and [place]. This disclosure is being madepursuant to the Care Everywhere program and may not contain all information available regarding this patient. Last updated 18.[facility] [employer] Allergies No known active allergies Immunizations Name Administration Dates Next Due TDAP (7yrs+) 08/16/2020 Social History Tobacco Use Types Packs/Day Years Used Date Smoking Tobacco: Never Assessed Sex and Gender Information Value Date Recorded Sex Assigned at Not on file Gender Identity Not on file Sexual Orientation Not on file Last Filed Vital Signs Vital Sign Reading Time Taken Comments Blood Pressure 129/90 08/16/2020 12:23 PM CDT Pulse 72 08/16/2020 12:23 PM CDT Temperature 36.2 C (97.1 F) 08/16/2020 12:23 PM CDT Respiratory Rate 16 08/16/2020 12:23 PM CDT Oxygen Saturation 97% 08/16/2020 12:23 PM CDT Inhaled Oxygen Concentration - - Weight 95.3 kg (210 lb) 08/16/2020 12:23 PM CDT Height 172.7 cm (5' 8 ) 08/16/2020 12:23 PM CDT Body Mass Index 31.93 08/16/2020 12:23 PM CDT Plan of Treatment Health Maintenance Due Date Last Done Comments COLOGUARD (AGES 45-75) - COL ON CA SCREENING 1969 COLON MONITORING 1969 COLONOSCOPY - COLON CA SCREENING 1969 CT COLONOGRAPHY - COLON CA SCREENING 1969 Colorectal Cancer Screening 1969 FIT - COLON CA SCREENING 1969 FLEX SIG - COLON CA SCREENING 1969 LIPID TESTING 1969 HIV SCREENING 1984 HEPATITIS C SCREENING 08/13/1987 HEPATITIS B VACCINE (1 of 3 - 19+ 3-dose series) 1988 PNEUMOCOCCAL VACCINE 50+ (1 of 1 - PCV) 08/18/2019 ZOSTER VACCINE (1 of 2) 08/18/2019 COVID-19 VACCINE ( - 2023-2 5 season) 2023 INFLUENZA VACCINE (#1) 2023 DEPRESSION SCREENING 04/17/2024 DTAP/TDAP/TD VACCINES (2 - T d or Tdap) 08/16/2030 08/16/2020 HIB VACCINE Aged Out No longer eligi ble based on patient's age to complete this topic HPV VACCINE Aged Out No longer eligi ble based on patient's age to complete this topic MENINGOCOCCAL (Group B) VACC INE SHARED DECISION-MAKING Aged Out No longer eligibl e based on patient's age to complete this topic MENINGOCOCCAL GROUPS A/C/Y/W VACCINE Aged Out No longer eligible b ased on patient's age to complete this topic PNEUMOCOCCAL VACCINE Aged Out No long er eligible based on patient's age to complete this topic Care Teams Fire Extinguisher Sprinkler Inspector Relationship Specialty Start Date End Date Amanda Culp MD PCP - General 08/17/20 Amanda Culp MD 08/16/20
--- OUTSIDE RECORDS SUMMARY | 2024-07-22 15:03 | XMS_ITS | Clinical Summary ---
Author Organization [facility] Address [address] [facility] [address] [place] [address] Phone Care Team Providers Care Clinic Supervisor Name Role Phone Amanda Culp MD Primary Care Provider [phone] Jair Gandara MD Unavailable [phone] Allergies No known active allergies Medications tamsulosin [...] 04/14/2019 Assessment & Plan (04/28/2019 11:00 PM VENDOR MANAGER): Reviewed pt recent lab results Noted slightly [...] labs Assessment & Plan (04/28/2019 11:01 PM VENDOR MANAGER): Possible due to high prolactin levels If prolactin levels normal on repeat labs, plan to recheck 8 am total testosterone levels Knee pain 01/04/2017 Immunizations Immunization Administration Dates Next Due Influenza, Unspecified 06/20/2018(Deferred: Piedad ent Refused) Surgical History Surgery Date Site/Laterality Comments CYST REMOVAL Right Sebaceous cyst R cheek Medical History Medical History Date Comments Shingles outbreak 05/2017 Family History Medical History Relation Name Comments Stomach cancer Maternal Grandfather Relation Name Status Comments Maternal Grandfather Social History Tobacco Use Types Packs/Day Years [...] on file Legal Sex Male 1:23 AM VENDOR MANAGER Gender Identity Not on file Sexual Orientation Not on file Obstetrics History Last Filed Vital Signs Vital Sign Reading Time Taken Comments Blood Pressure 130/74 06/27/2019 3:19 PM CDT Pulse 66 06/27/2019 3:19 PM CDT Temperature 37.1 C (98.7 F) 06/20/2018 3:00 PM VENDOR MANAGER Respiratory Rate 12 06/27/2019 3:19 PM CDT Oxygen Saturation 98% 06/20/2018 3:00 PM VENDOR MANAGER Inhaled Oxygen Concentration - - Weight 94.8 kg (209 lb) 06/27/2019 3:19 PM CDT Height 177.8 cm (5' 10 ) 06/27/2019 3:19 PM CDT Body Mass Index 29.99 06/27/2019 3:19 PM CDT Plan of Treatment Not on file Insurance [facility] CHOICE PLUS [facility] CHOICE PLUS Advance Directives For more information, please contact: [phone] * Full Code (Latest Code Status on File) Date Activated Date Inactivated Comments 06/06/2017 11:21 AM 06/06/2017 3:40 PM * Full Code Date Activated Date Inactivated Comments 06/06/2017 11:21 AM 06/06/2017 11:21 AM Care Teams Clinic Supervisor Relationship Specialty Start Date End Date Amanda Culp MD [address] [employer] [employer] [place] [address] PCP - General Internal Medicine 03/28/19 [place] [id number] [address] Consulting Physician Endocrinology 03/28/19
[2024-07-22 15:42] VITALS: BP 112/79; PULSE 64; RESP 18; O2SAT 99
[2024-07-22 15:47] LABS: Add Urine Microscopic? NO; Appearance Urine Clear (Clear); Basophils Percent Auto 0.5 % (0.2-1.2); Bilirubin Urine Negative (Negative); Blood Urine Negative (Negative); Color Urine Yellow (Yellow); Eosinophils Absolute Auto 0.1 K/mm3 (0-0.3); Eosinophils Percent Auto 1.5 % (0-4.4); Glucose Urine UA 3+ mg/dL (Negative); Hemoglobin 14.9 g/dL (14.0-18.0); Immature Granulocyte Absolute 0.02 K/mm3 (0.00-0.031); Immature Granulocyte Percent A 0.3 % (0-0.5); Ketones Urine 1+ mg/dL (Negative); Leukocyte Esterase Ur Negative LEU/UL (Negative); Lymphocytes Absolute Auto 2.27 K/mm3 (0.9-3.2); Lymphocytes Percent Auto 37.9 % (18.3-44.2); Mean Corpuscular HGB Conc 33.9 g/dl (32-36); Mean Corpuscular Hemoglobin 31.6 pg (26-34); Mean Corpuscular Volume 93.2 fl (80-100); Mean Platelet Volume 11.6 fl (7.4-10.4); Monocytes Absolute Auto 0.6 K/mm3 (0.1-0.6); Monocytes Percent Auto 9.5 % (2.6-8.5); Neutrophils Percent Auto 50.3 % (45.5-73.1); Nitrate Urine Negative (Negative); Platelet Count Result 172 k/mm3 (150-375); Protein Urine Negative (Negative); Red Blood Count 4.72 M/mm3 (4.6-6.20); Red Cell Distribution Width 12.1 % (11.5-14.5); Specific Grav Ur 1.025 (1.001-1.035); pH Urine 5.5 (5.0-9.0)
[2024-07-22 15:56] LABS: Alanine Aminotransferase 31 U/L (6-50); Albumin Level 4.2 g/dL (3.5-5.1); Alkaline Phosphatase 114 U/L (38-126); Anion Gap 7 mmol/L (4-12); Aspartate Amino Transferase 26 U/L (17-59); Bilirubin,Total 0.7 mg/dL (0.2-1.3); Blood Urea Nitrogen 21 mg/dL (9-20); Carbon Dioxide 28 mmol/L (22-30); Chloride 99 mmol/L (98-107); Estimated CRCL calculation 103 ml/min; Estimated Glomerular Filt Rate > 60; Glucose 215 mg/dL (65-110); Sodium 134 mmol/L (137-145)
[2024-07-22 16:42] VITALS: BP 119/81; PULSE 64; RESP 20; TEMP 36.4; O2SAT 100
--- OUTSIDE RECORDS SUMMARY | 2024-07-22 17:30 | XMS_ITS | Referral Summary ---
Author Organization [facility] Address [address] [address] [place] [address] Phone Care Team Providers Care Engineer Sergeant Name Role Phone Amanda Culp MD Primary Care Provider [phone] Jair Gandara MD Unavailable [phone] Allergies No known active allergies Medications tamsulosin [...] 04/14/2019 Assessment & Plan (04/28/2019 11:00 PM SENIOR TECHNICAL ANALYST): Reviewed pt recent lab results Noted slightly [...] labs Assessment & Plan (04/28/2019 11:01 PM SENIOR TECHNICAL ANALYST): Possible due to high prolactin levels If [...] on file Legal Sex Male 1:23 AM SENIOR TECHNICAL ANALYST Gender Identity Not on file Sexual Orientation Not on file Last Filed Vital Signs Vital Sign Reading Time Taken Comments Blood Pressure 130/74 06/27/2019 3:19 PM CDT Pulse 66 06/27/2019 3:19 PM CDT Temperature 37.1 C (98.7 F) 06/20/2018 3:00 PM SENIOR TECHNICAL ANALYST Respiratory Rate 12 06/27/2019 3:19 PM CDT Oxygen Saturation 98% 06/20/2018 3:00 PM SENIOR TECHNICAL ANALYST Inhaled Oxygen Concentration - - Weight 94.8 kg (209 lb) 06/27/2019 3:19 PM CDT Height 177.8 cm (5' 10 ) 06/27/2019 3:19 PM CDT Body Mass Index 29.99 06/27/2019 3:19 PM CDT Plan of Treatment Not on file Insurance [facility] CHOICE PLUS [facility] CHOICE PLUS Advance Directives For more information, please contact: [phone] * Full Code (Latest Code Status on File) Date Activated Date Inactivated Comments 06/06/2017 11:21 AM 06/06/2017 3:40 PM * Full Code Date Activated Date Inactivated Comments 06/06/2017 11:21 AM 06/06/2017 11:21 AM Care Teams Engineer Sergeant Relationship Specialty Start Date End Date Amanda Culp MD [facility] [address] PCP - General Internal Medicine 03/28/19 [place] [id number] [address] [facility] [address] [place] [address] Consulting Physician Endocrinology 03/28/19
--- OUTSIDE RECORDS SUMMARY | 2024-07-22 17:30 | XMS_ITS | Clinical Summary ---
Author Organization [facility] Address [address] [place] [address] Care Team Providers Care Button Puncher Name Role Phone Amanda Culp MD Unavailable [phone] Amanda Culp MD Primary Care Provider [phone] Source Comments [facility],non-owned Affiliates and Associated Physician Practices is amultiple site organization consisting of ambulatory clinics and hospital sitesin [place], [place], [place] and [place]. This disclosure is being madepursuant to the Care Everywhere program and may not contain all information available regarding this patient. Last updated 18.[facility] [employer] Allergies No known active allergies Immunizations Name [...] age to complete this topic Care Teams Button Puncher Relationship Specialty Start Date End Date Amanda Culp MD PCP - General 08/17/20 Amanda Culp MD 08/16/20
--- OUTSIDE RECORDS SUMMARY | 2024-07-22 17:30 | XMS_ITS | Clinical Summary ---
Author Organization [facility] Address [address] [place] [address] Phone Care Team Providers Care Director Insurance Name Role Phone Amanda Culp MD Primary Care Provider +1- [phone] Jair Gandara MD Unavailable +1 [phone] Allergies No known active allergies Medications tamsulosin [...] 04/14/2019 Assessment & Plan (04/28/2019 11:00 PM LONGWALL HEADGATE OPERATOR): Reviewed pt recent lab results Noted slightly [...] labs Assessment & Plan (04/28/2019 11:01 PM LONGWALL HEADGATE OPERATOR): Possible due to high prolactin levels If [...] on file Legal Sex Male 1:23 AM LONGWALL HEADGATE OPERATOR Gender Identity Not on file Sexual Orientation Not on file Obstetrics History Last Filed Vital Signs Vital Sign Reading Time Taken Comments Blood Pressure 130/74 06/27/2019 3:19 PM CDT Pulse 66 06/27/2019 3:19 PM CDT Temperature 37.1 C (98.7 F) 06/20/2018 3:00 PM LONGWALL HEADGATE OPERATOR Respiratory Rate 12 06/27/2019 3:19 PM CDT Oxygen Saturation 98% 06/20/2018 3:00 PM LONGWALL HEADGATE OPERATOR Inhaled Oxygen Concentration - - Weight 94.8 kg (209 lb) 06/27/2019 3:19 PM CDT Height 177.8 cm (5' 10 ) 06/27/2019 3:19 PM CDT Body Mass Index 29.99 06/27/2019 3:19 PM CDT Plan of Treatment Not on file Insurance [facility] CHOICE [facility] HMO/PPO Address: [address] [place] [address] [facility] CHOICE [facility] HMO/PPO Address: [address] [place] [address] Advance Directives For more information, please contact: [phone] * Full Code (Latest Code Status on File) Date Activated Date Inactivated Comments 06/06/2017 11:21 AM 06/06/2017 3:40 PM * Full Code Date Activated Date Inactivated Comments 06/06/2017 11:21 AM 06/06/2017 11:21 AM Care Teams Director Insurance Relationship Specialty Start Date End Date Amanda Culp MD [address] [employer] [place] [address] PCP - General Internal Medicine 03/28/19 [place] [id number] [address] Consulting Physician Endocrinology 03/28/19
== END 2024-07-22 16:43 | disposition home or self-care (01) ==
PROVIDERS: Physician Assistant; Emergency Provider Emergency Medicine; PCP Internal Medicine
DX: E11.65 Type 2 diabetes mellitus with hyperglycemia (principal); T38.3X6A Underdosing of insulin and oral hypoglycemic [antidiabetic] drugs, initial encounter; Z91.138 Patient's unintentional underdosing of medication regimen for other reason; N40.0 Benign prostatic hyperplasia without lower urinary tract symptoms; Z79.1 Long term (current) use of non-steroidal anti-inflammatories (NSAID); Z79.899 Other long term (current) drug therapy
CPT/HCPCS: 36415; 80053; 81003; 82948; 85025; 99283

== ENCOUNTER 2024-07-31 08:26 | Outpatient (CLI) | payer OTHER, SELFPAY ==
--- NOTE | ~2024-07-31 | MR_ITS ---
MRI of the left knee Clinical history: Pain Technique: Coronal proton density and proton density-weighted images, sagittal proton-density and T2 fat-sat images, and axial proton-density fat-saturated images were acquired. Findings: There is probable mucoid degenerative change of the ACL which is thickened and hyperintense , versus possible interstitial partial tear. Posterior cruciate ligament intact. Medial collateral li gament and the lateral collateral ligament complex are intact. Popliteus tendon is intact. There is probable mildly complex tear of the posterior horn of the lateral meniscus. There is oblique tear of the posterior horn of the medial meniscus. There is mild chondromalacia patella. There is moderate chondral thinning at the medial and lateral j oint lines. Extensor mechanism is intact. Moderate joint effusion present. Small Romero's cyst. Impression: Oblique tear of the posterior horn of the medial meniscus. Probable complex tearing of the posterior horn lateral meniscus. Mucoid degenerative change of the ACL versus possible interstitial partial tear. Mild degenerative change, as above. Moderate joint effusion with small Romero's cyst. Reviewed, dictated and finalized at location . Impression: Oblique tear of the posterior horn of the medial meniscus. Probable complex tearing of the posterior horn lateral meniscus. Mucoid degenerative change of the ACL versus possible interstitial partial tear . Mild degenerative change, as above. Moderate joint effusion with small Romero's cyst.
== END 2024-07-31 08:27 | disposition home or self-care (01) ==
PROVIDERS: PCP Nurse Practitioner; Visit Provider Orthopaedic Surgery
DX: S83.282A Other tear of lateral meniscus, current injury, left knee, initial encounter (principal); X58.XXXA Exposure to other specified factors, initial encounter; M17.12 Unilateral primary osteoarthritis, left knee; M23.612 Other spontaneous disruption of anterior cruciate ligament of left knee; M25.462 Effusion, left knee; M71.22 Synovial cyst of popliteal space [Baker], left knee
CPT/HCPCS: 73721

== ENCOUNTER 2024-08-27 08:36 | Outpatient (CLI) | payer OTHER, SELFPAY ==
--- NOTE | 2024-08-27 08:30 | ECG_ITS ---
Test Date: 2024-08-27 08:50:35 Measurements Intervals Bledsoe Rate: 60 P: -31 RI: 157 QRS: 13 QRSD: 102 T: 27 QT: 399 QTc: 402 Interpretive Statements SINUS RHYTHM No previous ECG available for comparison Electronically Signed On 08-27-2024 14:58:54 CDT by Martin Diaz M.D.
--- OUTSIDE RECORDS SUMMARY | 2024-08-27 08:43 | XMS_ITS | Clinical Summary ---
Author Organization [facility] Address [facility] [place] [address] Care Team Providers Care Global Security Architect Name Role Phone Sandra, Sally Liliya AUTO BODY SERVICE MECHANIC Primary Care Provider [phone] Allergies No known active allergies Medications semaglutide (RYBELSUS) 3 MG tabletIndication s:Diabetes Mellitus Take 1 tablet (3 mg total) by mouth every morning before breakfast. Indications: Diabetes Then increase to 7mg daily. 30 tablet 1 5 Active semaglutide (RYBELSUS) 7 MG tabletIndication s:Diabetes Mellitus Take 1 tablet (7 mg total) by mouth every morning before breakfast. Indications: Diabetes 30 tablet 1 5 Active tadalafil (CIALIS) 20 MG tabletIndication s:Erectile dysfunction, unspecified erectile dysfunction type Take 1 tablet (20 mg total) by mouth daily as needed for Erectile Dysfunction. 24 tablet 1 5 Active Active Problems Problem Noted Date Diagnosed Date Type 2 diabetes mellitus wit h hyperglycemia, without long-term current use of insulin ([facility]) 07/25/2024 Erectile dysfunction, unspecified erectile dysfu nction type 07/25/2024 Testicular hypofunction 07/25/2024 ELY (obstructive sleep apnea) 07/25/2024 Osteoarthritis of both knees , unspecified osteoarthritis type 07/25/2024 Encounters Date Type Department Care Team Description 08/06/2024 Scan [facility] Scanned, Doc [facility] 07/31/2024 Scan [facility] Scanned, Doc [facility] MRI (SCAN) 07/29/2024 MyChart Message Enc [facility] Medical Group Multispecialty Care [facility] [address] [facility] [address] [address] [place] [address] Sally Flores, SETH Medicine follow up 07/25/2024 1:20 PM CDT Office Visit [facility] Medical [facility]pecial[facility] - [place] [address] [facility] [address] [place] [address] Sally Flores, AUTO BODY SERVICE MECHANIC New Patient 07/25/2024 Scan HEALTH INFO SRVCS Scanned, Doc Med Group 07/25/2024 Travel from Last 3 Months Social History Tobacco Use Types Packs/Day Years Used Date Smoking Tobacco: Never Passive Smoke Exposure: Never Smokeless Tobacco: Never Tobacco Cessation:Counseling Given: No Alcohol Use Standard Drinks/Week Comments Yes 0 (1 standard drink = 0.6 oz pur e alcohol) social PHQ-2 Answer Date Recorded Patient Health Questionnaire-2 Score 0 07/25/2024 Sex and Gender Information Value Date Recorded Sex Assigned at Male 07/25/2024 1:41 PM CDT Legal Sex Male 11:09 AM CDT Gender Identity Male 07/25/2024 1:41 PM CDT Sexual Orientation Not on file Last Filed Vital Signs Vital Sign Reading Time Taken Comments Blood Pressure 104/78 07/25/2024 1:40 PM CDT Pulse 72 07/25/2024 1:40 PM CDT Temperature 36.4 C (97.6 F) 07/25/2024 1:40 PM CDT Respiratory Rate 18 07/25/2024 1:40 PM CDT Oxygen Saturation 98% 07/25/2024 1:40 PM CDT Inhaled Oxygen Concentration - - Weight 87.5 kg (193 lb) 07/25/2024 1:40 PM CDT Height 177.8 cm (5' 10 ) 07/25/2024 1:40 PM CDT Body Mass Index 27.69 07/25/2024 1:40 PM CDT Plan of Treatment Upcoming Encounters Date Type Department Care Team (Late st Contact Info) Description 10/17/2024 8:20 AM CDT Office Visit [facility] Medical [facility] Multispecialty [facility] [place] [address] [facility] [address] [place] [address] Sally Flores, AUTO BODY SERVICE MECHANIC [address] [place] [address] Health Maintenance Due Date Last Done Comments Colorectal Cancer Screening Colonoscopy (10 Years) 1969 Kidney Health Evaluation 1969 Lipid Panel 1969 Annual Physical 1972 Diabetes: Retinopathy Eye Exam 08/18/1987 Hepatitis C 08/18/1987 Hepatitis B Vaccines (1 of 3 - 19+ 3-dose series) 1988 Pneumococcal Vaccine: 50+ Years (1 of 2 - PCV) 1988 Zoster Vaccines (1 of 2) 08/18/2019 COVID-19 Vaccine (4 - 2023-2 5 season) 2023 05/13/2021, 09/05/2020, 08/15/2020 Hemoglobin A1C 10/24/2024 07/25/2024 DTaP, Tdap and Td Vaccines ( 2 - Td or Tdap) 08/16/2030 08/16/2020 PHQ-2 (Physician [place]) Completed 07/25/2024 Meningococcal B Vaccine Aged Out No l onger eligible based on patient's age to complete this topic Meningococcal Vaccine Aged Out No daiana nancie eligible based on patient's age to complete this topic RSV Immunizations Under 20 Months Aged Out No longer eligible b ased on patient's age to complete this topic Procedures Procedure Name Priority Date/Time Associated Diagnosis Comments MRI GENERIC 07/31/2024 MRI GENERIC 07/31/2024 HEMOGLOBIN, GLYCOSYLATED Routine 07/25/2024 Type 2 diabetes mellitus with hyperglycemia, without long-term current use of insulin ([facility]) from Last 3 Months Results * MRI GENERIC (07/31/2024) Only the most recent of2 resultswithin the time period is included. Anatomical Region Laterality Modality Other 07/31/2024 us Doc Med [facility] Scanned SCANNING Final Resu lt * (ABNORMAL) A1C (BACK OFFICE) (07/25/2024) HGB A1C 11.2 % [id number] [place] 07/25/2024 us Sally Flores NP LABORATORY Final Resul t [id number], [place] [address] [place] [address], [place] [phone] from Last 3 Months Insurance [address] [address] Care Teams Global Security Architect Relationship Specialty Start Date End Date Sally Flores, SETH [address] [place] [address] PCP - General NURSE PRACTITIONER 07/22/24
--- OUTSIDE RECORDS SUMMARY | 2024-08-27 08:43 | XMS_ITS | Referral Summary ---
Author Organization [facility] Address [address] [facility] [address] [place] [address] Phone Care Team Providers Care Bullet Swaging Machine Adjuster Name Role Phone Amanda Culp MD Primary Care Provider [phone]- [phone] Jair Gandara MD Unavailable [phone] [phone] Allergies No known active allergies Medications tamsulosin [...] 04/14/2019 Assessment & Plan (04/28/2019 11:00 PM LADIES LOCKER ROOM ATTENDANT): Reviewed pt recent lab results Noted slightly [...] labs Assessment & Plan (04/28/2019 11:01 PM LADIES LOCKER ROOM ATTENDANT): Possible due to high prolactin levels If [...] on file Legal Sex Male 1:23 AM LADIES LOCKER ROOM ATTENDANT Gender Identity Not on file Sexual Orientation Not on file Last Filed Vital Signs Vital Sign Reading Time Taken Comments Blood Pressure 130/74 06/27/2019 3:19 PM CDT Pulse 66 06/27/2019 3:19 PM CDT Temperature 37.1 C (98.7 F) 06/20/2018 3:00 PM LADIES LOCKER ROOM ATTENDANT Respiratory Rate 12 06/27/2019 3:19 PM CDT Oxygen Saturation 98% 06/20/2018 3:00 PM LADIES LOCKER ROOM ATTENDANT Inhaled Oxygen Concentration - - Weight 94.8 kg (209 lb) 06/27/2019 3:19 PM CDT Height 177.8 cm (5' 10 ) 06/27/2019 3:19 PM CDT Body Mass Index 29.99 06/27/2019 3:19 PM CDT Plan of Treatment Not on file Insurance [facility] CHOICE PLUS [facility] CHOICE PLUS Advance Directives For more information, please contact: [phone] * Full Code (Latest Code Status on File) Date Activated Date Inactivated Comments 06/06/2017 11:21 AM 06/06/2017 3:40 PM * Full Code Date Activated Date Inactivated Comments 06/06/2017 11:21 AM 06/06/2017 11:21 AM Care Teams Bullet Swaging Machine Adjuster Relationship Specialty Start Date End Date Amanda Culp MD [facility] [facility] [address] PCP - General Internal Medicine 03/28/19 [place] [address] [address] [facility] [address] [place] [address] Consulting Physician Endocrinology 03/28/19
--- OUTSIDE RECORDS SUMMARY | 2024-08-27 08:43 | XMS_ITS | Clinical Summary ---
Author Organization [facility] Address [address] [place] [address] Care Team Providers Care Product Safety Associate Name Role Phone Amanda Culp MD Unavailable [phone] Amanda Culp MD Primary Care Provider [phone] [facility],non-owned Affiliates and Associated Physician Practices is amultiple site organization consisting of ambulatory clinics and hospital sitesin [place], [place], [place] and [place]. This disclosure is being madepursuant to the Care Everywhere program and may not contain all information available regarding this patient. Last updated 18.[facility] [employer] Allergies No known active allergies Immunizations Immunization Administration Dates Next Due TDAP (7yrs+) 08/16/2020 Social History Tobacco Use Types Packs/Day Years Used Date Smoking Tobacco: Never Assessed Sex and Gender Information Value Date Recorded Sex Assigned at Not on file Legal Sex Male 11:38 AM CDT Gender Identity Not on file Sexual Orientation [...] VACCINE ( - 2023-2 5 season) 2023 DEPRESSION SCREENING 04/17/2024 INFLUENZA VACCINE (Season Ended) 2024 DTAP/TDAP/TD VACCINES (2 - T d or [...] on patient's age to complete this topic Insurance [facility] Care Teams Product Safety Associate Relationship Specialty Start Date End Date Amanda Culp MD PCP - General 08/17/20 Amanda Culp MD 08/16/20
--- OUTSIDE RECORDS SUMMARY | 2024-08-27 08:43 | XMS_ITS | Clinical Summary ---
Author Organization [facility] Address [address] [facility] [address] [place] [address] Phone Care Team Providers Care Machine Pan Greaser Name Role Phone Amanda Culp MD Primary Care Provider [phone] Jair Gandara MD Unavailable [phone] Allergies No known active allergies Medications tamsulosin [...] 04/14/2019 Assessment & Plan (04/28/2019 11:00 PM CREDENTIALING MANAGER): Reviewed pt recent lab results Noted [...] labs Assessment & Plan (04/28/2019 11:01 PM CREDENTIALING MANAGER): Possible due to high prolactin levels [...] on file Legal Sex Male 1:23 AM CREDENTIALING MANAGER Gender Identity Not on file Sexual Orientation Not on file Obstetrics History Last Filed Vital Signs Vital Sign Reading Time Taken Comments Blood Pressure 130/74 06/27/2019 3:19 PM CDT Pulse 66 06/27/2019 3:19 PM CDT Temperature 37.1 C (98.7 F) 06/20/2018 3:00 PM CREDENTIALING MANAGER Respiratory Rate 12 06/27/2019 3:19 PM CDT Oxygen Saturation 98% 06/20/2018 3:00 PM CREDENTIALING MANAGER Inhaled Oxygen Concentration - - Weight 94.8 kg (209 lb) 06/27/2019 3:19 PM CDT Height 177.8 cm (5' 10 ) 06/27/2019 3:19 PM CDT Body Mass Index 29.99 06/27/2019 3:19 PM CDT Plan of Treatment Not on file Insurance [facility] CHOICE PLUS [facility] HMO/PPO Address: [address] [place] [address] [facility] CHOICE PLUS [facility] H[facility]/PPO Address: [address] [place] [address] Advance Directives For more information, please contact: [phone] * Full Code (Latest Code Status on File) Date Activated Date Inactivated Comments 06/06/2017 11:21 AM 06/06/2017 3:40 PM * Full Code Date Activated Date Inactivated Comments 06/06/2017 11:21 AM 06/06/2017 11:21 AM Care Teams Machine Pan Greaser Relationship Specialty Start Date End Date Amanda Culp MD [address] [employer] [place] [address] PCP - General Internal Medicine 03/28/19 [place] [address] [address] Consulting Physician Endocrinology 03/28/19
--- OUTSIDE RECORDS SUMMARY | 2024-08-27 08:43 | XMS_ITS | Encounter Summary ---
Author Organization [facility] Address [address] [place] [address] Care Team Providers Care Switch Repairer Name Role Phone Sally Flores NP Primary Care Provider [phone] Encounter Details Date Type Department Care Team (Latest Contact Info) Description 07/29/2024 MyChart Message Enc [place] [address] [place], [place] [address] Sally Flores, SETH [address] [place] [address] Medicine follow up Social History Tobacco Use Types Packs/Day Years Used Date Smoking Tobacco: Never Passive Smoke Exposure: Never Smokeless Tobacco: Never Alcohol Use Standard [...] PM CDT Sexual Orientation Not on file documented as of this encounter Plan of Treatment Upcoming Encounters Date Type Department Care Team (Late st Contact Info) Description 10/17/2024 8:20 AM CDT [facility] [address] [place] [address] Sally Flores, SETH [address] [place], [place] [phone] documented as of this encounter Visit Diagnoses Not on filedocumented in this encounter Care Teams Switch Repairer Relationship Specialty Start Date End Date Sally Flores, BRANCH DIRECTOR [address] [facility] [address] [address] [place] [address] PCP - General NURSE PRACTITIONER 07/22/24 documented as of this encounter
== END 2024-08-27 08:37 | disposition home or self-care (01) ==
LOC: ANHSURGERY 08:40
PROVIDERS: PCP Nurse Practitioner; Visit Provider Orthopaedic Surgery
DX: Z01.810 Encounter for preprocedural cardiovascular examination (principal); E11.9 Type 2 diabetes mellitus without complications
CPT/HCPCS: 93005

== ENCOUNTER 2024-09-02 00:30 | Day surgery (SDC) | payer OTHER, SELFPAY ==
[2024-08-22 10:34] VITALS: BMI 26.4
--- NOTE | 2024-08-22 10:35 | PC.NURSE ---
Report to the Outpatient Waiting Room, entrance under the green pavilion located off [facility], at time _0700_ on date _[id number]_. Planned Procedure Time: _0900_. Time changes happen often and if your time is changed the preop area will call you the afternoon before. - You and your visitor will be asked to self-screen and do not enter if you have any COVID symptoms. Please call surgeon if you need to reschedule. - A mask is optional within the hospital at this time. Patients may have clear liquids (water, carbonated beverages, clear teas, apple juice) until 3 hours prior to surgery with a maximum of 20 ounces. - No food from midnight until time of surgery and no smoking, or chewing tobacco (or any form of nicotine). No chewing gum, candy or mints. Take only the following medications with a SIP of water on the morning of surgery: __None___ DO NOT STOP ANY OF YOUR OTHER PRESCRIPTION MEDICATIONS PRIOR TO SURGERY EXCEPT THE FOLLOWING Hold all vitamins and supplements for 3 days per anesthesiologist. Medications to discontinue per physician Date to take last dose Please no make-up, nail amharic, hairspray, perfume, deodorant, or body powder the day of surgery. No jewelry (including any body piercings) or valuables the day of surgery, leave them at home. Please take a shower or bath the night before, or the morning of, surgery with an antibacterial soap. Wear comfortable, loose fitting clothing. - Jewelry must be removed prior to entering the operating room. Rings and piercings that are not removed may be cut off. - The hospital will not accept responsibility for valuables. - Please leave all valuables, including medications, at home the day of surgery. If you are going home after surgery, a licensed rolloff driver must drive you home. - NO public transportation without another adult if you receive anesthesia. - We recommend that an adult stay with you for 24 hours following discharge. - We also recommend that you do not drive, make important decision, drink alcoholic beverages, or take any drugs that were not prescribed by your health care provider for at least 24 hours after your discharge time. Follow any additional instructions given to you from your surgeon. Telephone instructions given to _Saúl___and asked if any additional questions and then verbalized understanding. Patient advised to call surgeon office or pre surgery nurse liaison [phone] if any additional questions.
--- NOTE | 2024-08-29 08:09 | P.HP_ITS ---
H&P: HPI History of Present Illness Date/Time: 08/29/24 08:09 Chief Complaint: Patient has knee pain left. He has mechanical catching locking and pain with manipulation. He has failed conservative treatment like to consider arthroscopic intervention. Review of Systems Musculoskeletal: Musculoskeletal: Reports arthralgias, Reports joint swelling and Reports stiffness Neurologic: Reports abnormal gait [facility] Past Medical History Medical History Diabetes Anxiety Colon cancer screening BPH (benign prostatic hyperplasia) Surgical History Surgical History No significant past surgical history Family History Family History Grandparent Stomach cancer Social History Social History Smoking status: Never smoker Alcohol intake: former Substance use type: does not use Do You Feel Safe in your Home?: Yes Lack of Transportation: No Lack of Food: Never True Current Housing: I Have Housing Concerned About Future Housing: No Difficulty Paying Gas/Electric Bills: No Difficulty Paying for Meds: No Currently Unemployed: No Education: High School Diploma/GED Difficulty w/ Childcare or Family Care: No Living arrangements: with family Occupation/Education: occupation Additional occupation/education comments: [employer] Gender identity (if verbalized by the patient): Male Spiritual care concerns: No Meds Home Medications and Allergies Home Medications Medication Instructions Recorded Confirmed Type tadalafil 20 mg tablet 20 mg PO DAILY PRN sexual activity 07/10/23 08/22/24 History semaglutide 3 mg tablet (Rybelsus) 3 mg PO DAILY 08/06/24 08/22/24 History Allergies Allergy/AdvReac Type Severity Reaction Status Date / Time No Known Allergies Allergy Verified 08/27/24 07:07 Exam Narrative: On exam the patient has pain in the left knee. He is tender along the joint line has a positive Benton's sign. He has catching and mechanical locking of the knee. Neurologically he is intact. He walks with antalgic gait. And has pain with any manipulation. Eyes: General: appearance normal, both eyes and all related structures Neck: Neck: supple Resp: Effort & Inspection: normal respiratory effort Cardio: Rate: regular rate Rhythm: regular rhythm Radiology Reports: Comments: Magnetic Resonance Report Signed Patient: Saúl Johnston MRI of the left knee Clinical history: Pain Technique: Coronal proton density and proton density-weighted images, sagittal proton-density and T2 fat-sat images, and axial proton-density fat-saturated images were acquired. Findings: There is probable mucoid degenerative change of the ACL which is thickened and hyperintense, versus possible interstitial partial tear. Posterior cruciate ligament intact. Medial collateral ligament and the lateral collateral ligament complex are intact. Popliteus tendon is intact. There is probable mildly complex tear of the posterior horn of the lateral meniscus. There is oblique tear of the posterior horn of the medial meniscus. There is mild chondromalacia patella. There is moderate chondral thinning at the medial and lateral joint lines. Extensor mechanism is intact. Moderate joint effusion present. Small Roemro's cyst. Impression: Oblique tear of the posterior horn of the medial meniscus. Probable complex tearing of the posterior horn lateral meniscus. Mucoid degenerative change of the ACL versus possible interstitial partial tear. Mild degenerative change, as above. Moderate joint effusion with small Romero's cyst. Reviewed, dictated and finalized at [facility]. Knee X-Ray 07/25/24 Knee MRI 07/31/24 Orthopedics Result Report 07/25/24 Lumbar Spine X-Ray 06/10/19 Assessment and Plan Assessment and plan (1) Acute medial meniscus tear of left knee: Code(s): S83.242A - Other tear of medial meniscus, current injury, left knee, initial encounter Status: Acute Assessment and Plan: Patient has meniscal tear left knee. He has failed conservative treatment. He would like to consider surgical intervention. I discussed arthroscopic intervention with him in detail. I discussed risks, benefits, limitations, and alternatives. He understands and agrees like to proceed. Will proceed with arthroscopy left knee partial medial meniscectomy proceed as indicated.
[2024-09-02] VITALS (8 sets, daily range): BP systolic 96–107; BP diastolic 61–75; PULSE 51–65; RESP 12–18; TEMP 36.2–36.6; O2SAT 96–98; BMI 27.0
--- OUTSIDE RECORDS SUMMARY | 2024-09-02 00:33 | XMS_ITS | Clinical Summary ---
Author Organization [facility] Address [facility] [place] [address] Care Team Providers Care Carburetor Mechanic Name Role Phone Sandra, Sally Liliya BUYER LIAISON Primary Care Provider [phone] Allergies No known active allergies Medications semaglutide [...] hyperglycemia, without long-term current use of insulin ([facility]) 07/25/2024 Erectile dysfunction, unspecified erectile dysfu nction type 07/25/2024 Testicular hypofunction 07/25/2024 ELY (obstructive sleep apnea) 07/25/2024 Osteoarthritis of both knees , unspecified osteoarthritis type 07/25/2024 Encounters Date Type Department Care Team Description 08/06/2024 Scan [facility] Scanned, Doc [facility] 07/31/2024 Scan [facility] Scanned, Doc [facility] MRI (SCAN) 07/29/2024 MyChart Message Enc [facility] Medical Group Multispecialty Care [facility] [address] [place] [address] Sally Flores, SETH Medicine follow up 07/25/2024 1:20 PM CDT Office Visit [facility] [place] [address] [place] [address] Sally Flores, BUYER LIAISON New Patient 07/25/2024 Scan HEALTH INFO SRVCS [...] Description 10/17/2024 8:20 AM CDT Office Visit [facility] Multispec[facility]ty [facility] [place] [address] [place] [address] Sally Flores, BUYER LIAISON [address] [place] [address] Health Maintenance Due Date Last Done Comments [...] Td or Tdap) 08/16/2030 08/16/2020 PHQ-2 (Physician [place]) Completed 07/25/2024 Meningococcal B Vaccine Aged Out [...] hyperglycemia, without long-term current use of insulin ([facility]) from Last 3 Months Results * MRI GENERIC (07/31/2024) Only the most recent of2 resultswithin the time period is included. Anatomical Region Laterality Modality Other 07/31/2024 us Doc Med Group Scanned SCANNING Final Resu lt * (ABNORMAL) A1C (BACK OFFICE) (07/25/2024) HGB A1C 11.2 % [id number] [place] 07/25/2024 us Sally Flores NP LABORATORY Final Resul t [id number] [place] [address] [place] [address], [place] [phone] from Last 3 Months Insurance [id number] Care Teams Carburetor Mechanic Relationship Specialty Start Date End Date Sally Flores, SETH [address] [place] [address] PCP - General NURSE PRACTITIONER 07/22/24
--- OUTSIDE RECORDS SUMMARY | 2024-09-02 00:33 | XMS_ITS | Clinical Summary ---
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 OPERATOR): Reviewed pt recent lab results Noted [...] labs Assessment & Plan (04/28/2019 11:01 PM MOTORCOACH OPERATOR): Possible due to high prolactin levels [...] on file Legal Sex Male 1:23 AM MOTORCOACH OPERATOR Gender Identity Not on file Sexual Orientation Not on file Obstetrics History Last Filed Vital Signs Vital Sign Reading Time Taken Comments Blood Pressure 130/74 06/27/2019 3:19 PM CDT Pulse 66 06/27/2019 3:19 PM CDT Temperature 37.1 C (98.7 F) 06/20/2018 3:00 PM MOTORCOACH OPERATOR Respiratory Rate 12 06/27/2019 3:19 PM CDT Oxygen Saturation 98% 06/20/2018 3:00 PM MOTORCOACH OPERATOR Inhaled Oxygen Concentration - - Weight 94.8 kg (209 lb) 06/27/2019 3:19 PM CDT Height 177.8 cm (5' 10 ) 06/27/2019 3:19 PM CDT Body Mass Index 29.99 06/27/2019 3:19 PM CDT Plan of Treatment Not on file Insurance [facility] CHO[facility] HMO/PPO Address: [address] [place] [address] [facility] HMO/PPO Address: [address] [place] [address] Advance Directives For more information, please contact: [phone] * Full Code (Latest Code Status on File) Date Activated Date Inactivated Comments 06/06/2017 11:21 AM 06/06/2017 3:40 PM * Full Code Date Activated Date Inactivated Comments 06/06/2017 11:21 AM 06/06/2017 11:21 AM Care Teams Director Of Convention Services Relationship Specialty Start Date End Date Amanda Culp MD [address] [place] [address] PCP - General Internal Medicine 03/28/19 [place] [address] [address] Consulting Physician Endocrinology 03/28/19
--- OUTSIDE RECORDS SUMMARY | 2024-09-02 00:33 | XMS_ITS | Clinical Summary ---
Author Organization [facility] Address [address] [place] [address] Care Team Providers Care Coding Validator Name Role Phone Amanda Culp MD Unavailable [phone] Amanda Culp MD Primary Care Provider [phone] Source Comments [facility],non-owned Affiliates and Associated Physician Practices is amultiple site organization consisting of ambulatory clinics and hospital sitesin [place], [place], [place] and [place]. This disclosure is being madepursuant to the Care Everywhere program and may not contain all information available regarding this patient. Last updated 18.[facility] [employer] Allergies No known active allergies Immunizations Immunization [...] patient's age to complete this topic Insurance [facility] Care Teams Coding Validator Relationship Specialty Start Date End Date Amanda Culp MD PCP - General 08/17/20 Amanda Culp MD 08/16/20
--- OUTSIDE RECORDS SUMMARY | 2024-09-02 00:33 | XMS_ITS | Encounter Summary ---
Author Organization [facility] Address [address] [place] [address] Care Team Providers Care Optical Designer Name Role Phone Sally Flores NP Primary Care Provider [phone] Encounter Details Date Type Department Care Team (Latest Contact Info) Description 07/29/2024 MyChart Message Enc [place] [address] [place], [place] [id number] Sally Flores, SETH [address] [place] [address] Medicine follow up Social History Tobacco Use [...] Description 10/17/2024 8:20 AM CDT [facility] [address] [place] [address] Sally Flores, SETH [address] [place], [place] [id number] documented as of this encounter Visit Diagnoses Not on filedocumented in this encounter Care Teams Optical Designer Relationship Specialty Start Date End Date Sally Flores, YARD SUPERVISOR COTTON GIN [address] [place] [address] PCP - General NURSE PRACTITIONER 07/22/24 documented as of this encounter
--- OUTSIDE RECORDS SUMMARY | 2024-09-02 00:33 | XMS_ITS | Referral Summary ---
Author Organization [facility] Address [address] [place] [address] Phone Care Team Providers Care Meat Supervisor Name Role Phone Amanda Culp MD Primary Care Provider [phone] Jair Gandara MD Unavailable [phone] Allergies No known active allergies Medications tamsulosin [...] 04/14/2019 Assessment & Plan (04/28/2019 11:00 PM ELECTRICAL CAD DESIGNER): Reviewed pt recent lab results Noted slightly [...] labs Assessment & Plan (04/28/2019 11:01 PM ELECTRICAL CAD DESIGNER): Possible due to high prolactin levels If [...] on file Legal Sex Male 1:23 AM ELECTRICAL CAD DESIGNER Gender Identity Not on file Sexual Orientation Not on file Last Filed Vital Signs Vital Sign Reading Time Taken Comments Blood Pressure 130/74 06/27/2019 3:19 PM CDT Pulse 66 06/27/2019 3:19 PM CDT Temperature 37.1 C (98.7 F) 06/20/2018 3:00 PM ELECTRICAL CAD DESIGNER Respiratory Rate 12 06/27/2019 3:19 PM CDT Oxygen Saturation 98% 06/20/2018 3:00 PM ELECTRICAL CAD DESIGNER Inhaled Oxygen Concentration - - Weight 94.8 kg (209 lb) 06/27/2019 3:19 PM CDT Height 177.8 cm (5' 10 ) 06/27/2019 3:19 PM CDT Body Mass Index 29.99 06/27/2019 3:19 PM CDT Plan of Treatment Not on file Insurance [facility] CHOICE PLUS [facility] CHO[facility] PLUS Advance Directives For more information, please contact: [phone] * Full Code (Latest Code Status on File) Date Activated Date Inactivated Comments 06/06/2017 11:21 AM 06/06/2017 3:40 PM * Full Code Date Activated Date Inactivated Comments 06/06/2017 11:21 AM 06/06/2017 11:21 AM Care Teams Meat Supervisor Relationship Specialty Start Date End Date Amanda Culp MD [address] [facility] [place] [address] PCP - General Internal Medicine 03/28/19 [place] [address] [address] [place] [address] Consulting Physician Endocrinology 03/28/19
[2024-09-02 08:03] LABS: Glucose Point of Care 151 mg/dl (65-105)
--- NOTE | 2024-09-02 08:11 | WPDHPUPDATE1 ---
History and Physical Update Update Date/Time: 09/02/24 08:11 History and Physical has been reviewed, including an updated exam of the patient. There are NO changes in the patient's condition. Risks, benefits, and alternatives have been discussed and questions answered. Patient agrees to proceed with procedure.
--- NOTE | 2024-09-02 08:18 | P.PNAN_ITS ---
Anes - Initial Pre Proc Eval Procedure: Operation Date: 09/02/24 09:00 Proposed Procedures p Left Knee Arthroscopy, Partial Meniscectomy, Proceed As Indicated - Azam Mendoza MD Date/Time: 09/02/24 08:18 Surgeon: Azam Mendoza MD Pre Op Diagnosis: left knee medial meniscal tear Patient Data Age: 54 Gender: M Height: 1.78 m Weight: 85.4 kg Last Vital Signs Temp 36.6 C 09/02/24 08:08 Pulse 60 09/02/24 08:08 BP 101/61 09/02/24 08:08 Pulse Ox 98 09/02/24 08:08 O2 Del Method Room Air 09/02/24 08:08 Allergies Allergy/AdvReac Type Severity Reaction Status Date / Time No Known Allergies Allergy Verified 09/02/24 08:07 Home Medications Medication Instructions Recorded Confirmed Type tadalafil 20 mg tablet 20 mg PO DAILY PRN sexual activity 07/10/23 08/22/24 History semaglutide 3 mg tablet (Rybelsus) 3 mg PO DAILY 08/06/24 09/02/24 History Laboratory Tests 09/02/24 07:59 POC Capillary Glucose 151 H mg/dl (65-105) Patient hx anesthesia problems: none Family hx anesthesia problems: none Results Review: All pre-operative results and documents have been reviewed as part of the pre- operative evaluation. [facility] Past Medical History Medical History Diabetes Anxiety Colon cancer screening BPH (benign prostatic hyperplasia) Surgical History Surgical History No significant past surgical history Family History Family History Grandparent Stomach cancer Social History Social History Smoking status: Never smoker Alcohol intake: former Substance use type: does not use Do You Feel Safe in your Home?: Yes Lack of Transportation: No Lack of Food: Never True Current Housing: I Have Housing Concerned About Future Housing: No Difficulty Paying Gas/Electric Bills: No Difficulty Paying for Meds: No Currently Unemployed: No Education: High School Diploma/GED Difficulty w/ Childcare or Family Care: No Living arrangements: with family Occupation/Education: occupation Additional occupation/education comments: [employer] Gender identity (if verbalized by the patient): Male Spiritual care concerns: No Anes - Eval Final PreProcedure Day of Procedure 09/02/24 08:18 Patient weight: overweight Heart: regular rate and rhythm Lungs: clear to auscultation Airway: Mallampati scale class II Neurological: alert and oriented Last oral intake: >/= 8 hours ASA classification: II Emergent: no Anesthetic plan: proceed Anesthesia type and monitoring: general GIVS and standard monitoring Results Review: All pre-operative results and documents have been reviewed as part of the pre- operative evaluation. Informed Consent: The patient's anesthetic plan and its attendant risks and benefits were discussed with the patient/family/POA. Questions were solicited and answers provided to the satisfaction of the patient/family/POA.
[2024-09-02] MEDS: LACTATED RINGERS 1,000 ML 30 ML IV CONT (08:23)
[2024-09-02] MEDS: KETOROLAC 15 MG/ML VIAL (*BKC) IV PUSH (08:23)
[2024-09-02] MEDS: ACETAMINOPHEN 500 MG TABLET 1000 MG PO (08:23)
[2024-09-02] MEDS: ceFAZolin 2 GM/D5W 50 ML 2 GM/50 ML BAG IVPB (08:24)
[2024-09-02] MEDS: LIDO 1%/EPINEPHRINE 1:100,000 20 ML VIAL 30 ML INFILTRATE (08:49)
--- NOTE | 2024-09-02 09:02 | W.PM.PROC2 ---
Procedure Note - Detailed Date of Procedure 09/02/24 Pre-op Diagnosis Left knee Medial and Lateral meniscal tear Post-op Diagnosis Same Procedure Performed LEFT knee arthroscopy with partial meniscectomy Surgeon Azam Mendoza MD Anesthesia General Indications Pain, Locking and Catching Description of Procedure Patient brought to operating room # 8. An anesthetic was administered. The knee was sterilely prepped and draped in the usual manner. Standard portals were used. Superior medial portal was used for the outflow cannula, inferior lateral portal was used for the scope, inferior medial portal was used for the instruments. Arthroscopy was performed, the patellar femoral joint degenerative changes. The medial compartment showed a complex tear. The lateral compartment showed a complex tear as well. The ACL was intact. Using baskets and narda the meniscal tears were trimmed back to a stable base, so the nothing further could be pulled into the joint. Any loose or delaminated fragments were gently trimmed to a stable base. At this point the instruments were withdrawn, sutures placed and patient left the operating room in satisfactory condition. Estimated Blood Loss 20 Drains No Packing No Pathology None sent Complications No immediate complications Condition Stable Disposition PACU [facility] Billing Surgery - Charge Forward: Surgery Billing ([id number] MMT, LMT)
[2024-09-02 09:16] LABS: Glucose Point of Care 129 mg/dl (65-105)
== END 2024-09-02 10:52 | disposition home or self-care (01) ==
PROVIDERS: PCP Nurse Practitioner; Visit Provider Orthopaedic Surgery
PROC: (CPT 29870; principal; 2024-09-02 09:00)
DX: M23.332 Other meniscus derangements, other medial meniscus, left knee (principal); M23.362 Other meniscus derangements, other lateral meniscus, left knee; E11.9 Type 2 diabetes mellitus without complications
CPT/HCPCS: 29880; 82948; A9270; J0690; J1100; J1885; J2004; J2250; J2405; J2704; J7120